=== PATIENT | female | born 1960 | race Caucasian/White ===

== ENCOUNTER 2025-02-08 11:02 | Observation (INO) | payer OTHER ==
[2025-02-08 11:48] LABS: ABSOLUTE IMMATURE GRANULOCYTES 0.21 x10^3/uL (0.0-0.031); BASOPHILS # 0.01 x10^3/uL (0.01-0.08); EOSINOPHIL % 0.2 % (0.7-5.8); EOSINOPHILS # 0.02 x10^3/uL (0.04-0.36); HEMATOCRIT 37.7 % (34.1-44.9); HEMOGLOBIN 12.4 g/dL (11.2-15.7); INR 1.08 (0.83-1.09); MCHC 32.9 g/dl (32.2-35.5); MEAN CELL VOLUME 94.5 fl (79.4-94.8); MEAN PLT VOLUME 9.6 fl (9.4-12.3); MONOCYTE # 0.35 x10^3/uL (0.24-0.86); MONOCYTE % 3.4 % (4.7-12.5); PLATELET COUNT 277 x10^3/uL (182-369); RDW 12.2 % (12.4-16.4)
[2025-02-08 11:51] LABS: ACTIVATED PTT 28.3 SECONDS (25.2-36.5)
[2025-02-08 11:55] VITALS: BMI 20.2
[2025-02-08 11:59] LABS: ALBUMIN 4.4 g/dl (3.4-5.0); BILIRUBIN,TOTAL 0.8 mg/dl (0.2-1); CALCIUM 9.6 mg/dl (8.5-10.1); CREATININE 0.6 mg/dl (0.6-1.3); POTASSIUM 3.5 mmol/L (3.5-5.1); TOT PROT 7.3 g/dl (6.4-8.2)
[2025-02-08 13:07] LABS: EPITHELIAL CELLS 0-5 /hpf
[2025-02-08] MEDS ORDERED: cefTRIAXone SODIUM 1 GM VIAL ONE (13:17)
[2025-02-08] MEDS: CEFTRIAXONE 1 GM in DEXTROSE 5%-WATER - 100 ML IVPB ONE (13:26)
[2025-02-08 15:14] LABS: HIV INTERPRETATION NEGATIVE (NEGATIVE)
[2025-02-08 15:15] LABS: HCV DIAGNOSTIC IN-HOUSE W/RFLX NON-REACTIVE (NONREACTIVE)
[2025-02-08] MEDS: SENNOSIDES 8.6MG TABLET (FP) PO SCH (21:28)
[2025-02-08] MEDS ORDERED: SENNOSIDES 8.6MG TABLET (FP) PO SCH (22:00)
[2025-02-09] MEDS: LEVOTHYROXINE NA 125 MCG TABLET (FP) PO SCH (06:22)
[2025-02-09] MEDS: CHOLECALCIFEROL (VIT D3) 1,000 UNIT (25 MCG) TABLET PO SCH (09:19)
[2025-02-09] MEDS: CEFTRIAXONE 1 GM in DEXTROSE 5%-WATER - 50 ML IVPB SCH (09:19)
[2025-02-09] MEDS: ASCORBIC ACID 500 MG TABLET (FP) PO SCH (09:19)
[2025-02-09] MEDS: ENOXAPARIN NA (PORCINE) 40 MG/0.4 ML DISP.SYRIN SQ SCH (09:20)
[2025-02-09] MEDS ORDERED: LORazepam 2 MG/ML SDV VIAL IVPUSH PRN (10:13)
[2025-02-10] MEDS: ACETAMINOPHEN 1000 MG/100 ML BAG IVPB ONE (01:01)
[2025-02-10 07:46] LABS: ABSOLUTE IMMATURE GRANULOCYTES 0.04 x10^3/uL (0.0-0.031); BASOPHILS # 0.02 x10^3/uL (0.01-0.08); EOSINOPHIL % 1.3 % (0.7-5.8); EOSINOPHILS # 0.13 x10^3/uL (0.04-0.36); HEMATOCRIT 41.1 % (34.1-44.9); HEMOGLOBIN 13.7 g/dL (11.2-15.7); MCHC 33.3 g/dl (32.2-35.5); MEAN CELL VOLUME 92.8 fl (79.4-94.8); MEAN PLT VOLUME 9.5 fl (9.4-12.3); MONOCYTE # 0.85 x10^3/uL (0.24-0.86); MONOCYTE % 8.6 % (4.7-12.5); PLATELET COUNT 242 x10^3/uL (182-369); RDW 11.9 % (12.4-16.4)
[2025-02-10 09:10] LABS: CALCIUM 9.5 mg/dl (8.5-10.1); CREATININE 0.5 mg/dl (0.6-1.3); POTASSIUM 3.9 mmol/L (3.5-5.1)
[2025-02-10] MEDS: LACTOBACILLUS ACIDOPHILUS 1 TABLET PO SCH (09:30)
[2025-02-10 09:48] VITALS: BP 125/78; PULSE 68; RESP 18; TEMP 97.7
== END 2025-02-10 14:45 ==
LOC: EDBD → FER 11:02 → FM/S 13:06 → EDBD 13:06
PROVIDERS: ADMIT Internal Medicine; ATTEND Internal Medicine
PROC: 3E03329 Introduction of Other Anti-infective into Peripheral Vein, Percutaneous Approach (ICD-10-PCS; principal; 2025-02-08)
PROC: 3E033NZ Introduction of Analgesics, Hypnotics, Sedatives into Peripheral Vein, Percutaneous Approach (ICD-10-PCS; 2025-02-08)
PROC: 3E023GC Introduction of Other Therapeutic Substance into Muscle, Percutaneous Approach (ICD-10-PCS; 2025-02-08)
DX: N39.0 Urinary tract infection, site not specified (principal); R56.9 Unspecified convulsions; G30.0 Alzheimer's disease with early onset; F02.80 Dementia in other diseases classified elsewhere, unspecified severity, without behavioral disturbance, psychotic disturbance, mood disturbance, and anxiety; E03.9 Hypothyroidism, unspecified; F41.9 Anxiety disorder, unspecified; F28 Other psychotic disorder not due to a substance or known physiological condition; F32.A Depression, unspecified; Z86.16 Personal history of COVID-19
CPT/HCPCS: 0241U-QW; 36415; 70450-TC; 71045-TC-FY; 80048; 80053; 81003; 81015; 83735; 84439; 84443; 85025; 85610; 85730; 86803; 87086; 87186; 87389; 93005; 96365; 96366; 96372; 96375; 97116-GP; 97161-GP; 99285-25; G0378; J0131